=== PATIENT | male | born 1965 | race Caucasian/White ===

== ENCOUNTER 2024-02-25 19:02 | Inpatient (IN) | payer BC ==
[2024-02-25 19:08] LABS: Glucose,Whole Blood 109 mg/dL (70-110)
[2024-02-25] MEDS: ONDANSETRON 4 MG/2 ML VIAL IVP STA (19:23)
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
[2024-02-25] MEDS: MORPHINE SULFATE 4 MG/ML SYRINGE IVP STA (19:25)
[2024-02-25] MEDS: SODIUM CHLORIDE 0.9% 1,000 ML IV STA (19:27)
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
[2024-02-25 20:12] LABS: Basophils # (A) 0.1 k/uL (0-0.2); Basophils % (A) 1 %; Eosinophils # (A) 0.2 k/uL (0-0.7); Eosinophils % (A) 2 %; HGB 16.1 gm/dL (13.0-17.5); Lymphocytes % (A) 34 %; MCHC 33.6 g/dL (31.0-37.0); MCV 95.2 fL (80.0-100.0); Mean Platelet Volume 8.2; Monocytes # (A) 0.3 k/uL (0-1.0); Monocytes % (A) 4 %; Neutrophils % (A) 57 %; Platelet Count 258 k/uL (150-450); RBC 5.04 m/uL (4.30-5.90); RDW 13.3 % (11.5-15.5); WBC 8.8 k/uL (3.8-10.6)
[2024-02-25] MEDS: fentaNYL (PF) 50 MCG/ML 2 ML AMP IVP STA ×2 (20:14→21:35)
[2024-02-25 20:19] LABS: ALT 22 U/L (4-49); AST 39 U/L (17-59); African American GFR (CKD) >90 (>60 ml/min/1.73 sqM); Albumin 4.9 g/dL (3.5-5.0); Alkaline Phosphatase 84 U/L (38-126); Anion Gap 10 mmol/L; Blood Urea Nitrogen 6 mg/dL (9-20); Calcium 9.1 mg/dL (8.4-10.2); Carbon Dioxide 21 mmol/L (22-30); Chloride 106 mmol/L (98-107); Creatine Kinase 99 U/L (55-170); Glucose 105 mg/dL (74-99); Non-African American GFR(CKD) >90 (>60 ml/min/1.73 sqM); Potassium 4.5 mmol/L (3.5-5.1); Sodium 137 mmol/L (137-145); Total Bilirubin 0.8 mg/dL (0.2-1.3); Total Protein 7.5 g/dL (6.3-8.2)
[2024-02-25 20:22] LABS: Alcohol 140 mg/dL
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
[2024-02-25 21:09] LABS: INR 0.9 (<1.2); Prothrombin Time 10.1 sec (10.0-12.5)
[2024-02-25 21:22] LABS: Appearance,Urine Clear (Clear); Bilirubin,Urine Negative (Negative); Blood,Urine Negative (Negative); Color,Urine Colorless; Glucose,Urine (UA) Negative (Negative); Ketones,Urine Negative (Negative); Leukocyte Esterase,Urine Negative (Negative); Nitrite,Urine Negative (Negative); PH, Urine 5.5 (5.0-8.0); Protein,Urine Negative (Negative); Specific Gravity,Urine 1.014 (1.001-1.035); Urobilinogen,Urine <2.0 mg/dL (<2.0)
[2024-02-25] MEDS: MIDAZOLAM 1 MG/ML 5 ML VIAL IV STA (21:36)
[2024-02-25] MEDS: LIDOCAINE 1%-EPI 1:100,000 20 ML VIAL SQ STA (21:37)
[2024-02-25] MEDS: MIDAZOLAM 2 MG/2 ML VIAL IV ONE (21:45)
[2024-02-25 21:47] LABS: Amphetamine Screen,Urine Not Detected (NotDetected); Barbiturate Screen,Urine Not Detected (NotDetected); Benzodiazepines Screen,Urine Not Detected (NotDetected); Cocaine Screen,Urine Not Detected (NotDetected); Methadone Screen, Urine Not Detected (NotDetected); Opiate Screen,Urine Detected (NotDetected); Oxycodone Screen, Urine Not Detected (NotDetected); Phencyclidine Screen,Urine Not Detected (NotDetected); Tricyclic Antidepressant,Urine Not Detected (NotDetected); Urn Cannabinoid Scrn Detected (NotDetected)
[2024-02-25 21:50] LABS: Partial Thromboplastin Time 21.6 sec (22.0-30.0)
[2024-02-25] MEDS: fentaNYL (PF) 50 MCG/ML 2 ML AMP IVP ONE (21:54)
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
[2024-02-25] MEDS ORDERED: NALOXONE 0.4 MG/ML 1 ML VIAL IV PRN (22:18)
[2024-02-25] MEDS ORDERED: CALCIUM CARBONATE 500 MG CHEWABLE PO PRN (22:18)
[2024-02-25] MEDS ORDERED: MAG HYDROX/AL HYDROX/SIMETH 30 ML CUP PO PRN (22:18)
[2024-02-25] MEDS ORDERED: ACETAMINOPHEN TAB 325 MG TAB PO PRN (22:18)
[2024-02-25] MEDS ORDERED: ONDANSETRON 4 MG/2 ML VIAL IVP PRN (22:18)
--- NOTE | 2024-02-25 22:31 | XR ---
EXAMINATION TYPE: XR chest 1V portable DATE OF EXAM: 02/25/2024 COMPARISON: CT earlier today. HISTORY: Chest tube TECHNIQUE: Single frontal view of the chest is obtained. FINDINGS: There is new left-sided chest tube with overlying subcutaneous emphysema. No definitive pn eumothorax after chest tube placement though limitation due to supine technique. Right lung remains c lear. Cardiac silhouette size remains within normal limits. The osseous structures are intact. IMPRESSION: There is new Left-sided chest tube and adjacent subcutaneous emphysema. Supine technique limits evaluation for small pneumothorax.
[2024-02-25] MEDS ORDERED: methocarbamoL 500 MG TAB PO SCH (23:00)
[2024-02-25] MEDS: DIPH,PERTUS(ACELL)TETVAC-LF 0.5 ML VIAL IM ONE (23:26)
[2024-02-25] MEDS: NICOTINE 21MG/24HR PATCH TRANSDERM SCH (23:29)
[2024-02-25] MEDS: LIDOCAINE 4% PATCH TOPICAL ONE (23:37)
[2024-02-26] MEDS: KETOROLAC 15 MG/ML 1 ML VIAL IVP SCH (00:13)
[2024-02-26] MEDS: HYDROmorphone 1 MG/ML 1 ML SYRINGE IVP PRN (00:14)
[2024-02-26] MEDS: HYDROmorphone 0.5 MG/0.5 ML SYRINGE IVP PRN (04:08)
--- NOTE | 2024-02-26 07:44 | XR ---
EXAMINATION TYPE: XR chest 1V DATE OF EXAM: 02/26/2024 COMPARISON: 02/25/2024 INDICATION: Chest tube TECHNIQUE: Single frontal view of the chest is obtained. FINDINGS: The heart size is normal. The pulmonary vasculature is normal. Left-sided chest tube has been placed. Subcutaneous emphysema is diminished over the interval. No pne umothorax is evident. Some mild atelectasis appears to be at the left base. IMPRESSION: 1. Left-sided chest tube in position. No pneumothorax evident. Subcutaneous emphysema on the left is diminished from comparison. 2. Mild atelectasis left lung base.
[2024-02-26] MEDS: FAMOTIDINE 20 MG TAB PO SCH (09:13)
[2024-02-26 09:35] LABS: Basophils # (A) 0.1 k/uL (0-0.2); Basophils % (A) 1 %; Eosinophils # (A) 0.2 k/uL (0-0.7); Eosinophils % (A) 2 %; HCT 41.9 % (39.0-53.0); HGB 14.2 gm/dL (13.0-17.5); Lymphocytes # (A) 1.4 k/uL (1.0-4.8); Lymphocytes % (A) 16 %; MCH 32.4 pg (25.0-35.0); MCHC 33.9 g/dL (31.0-37.0); MCV 95.5 fL (80.0-100.0); Mean Platelet Volume 7.9; Monocytes # (A) 0.5 k/uL (0-1.0); Monocytes % (A) 5 %; Neutrophils # (A) 6.7 k/uL (1.3-7.7); Neutrophils % (A) 75 %; Platelet Count 171 k/uL (150-450); RBC 4.38 m/uL (4.30-5.90); RDW 13.8 % (11.5-15.5); WBC 8.9 k/uL (3.8-10.6)
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
[2024-02-26 09:44] LABS: ALT 16 U/L (4-49); AST 22 U/L (17-59); African American GFR (CKD) >90 (>60 ml/min/1.73 sqM); Albumin 3.5 g/dL (3.5-5.0); Alkaline Phosphatase 81 U/L (38-126); Anion Gap 4 mmol/L; Blood Urea Nitrogen 10 mg/dL (9-20); Calcium 8.1 mg/dL (8.4-10.2); Carbon Dioxide 25 mmol/L (22-30); Chloride 107 mmol/L (98-107); Glucose 101 mg/dL (74-99); Non-African American GFR(CKD) >90 (>60 ml/min/1.73 sqM); Potassium 3.8 mmol/L (3.5-5.1); Sodium 136 mmol/L (137-145); Total Bilirubin 0.6 mg/dL (0.2-1.3); Total Protein 5.6 g/dL (6.3-8.2)
[2024-02-26] MEDS: HYDROcodone/APAP 7.5-325MG 1 EACH TAB PO PRN (11:32)
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
--- NOTE | 2024-02-27 | XR ---
EXAMINATION TYPE: XR chest 1V DATE OF EXAM: 02/26/2024 CLINICAL HISTORY: Chest tube leak. TECHNIQUE: Single AP portable upright view of the chest is obtained. COMPARISON: Chest x-ray from earlier today. FINDINGS: Persistent left-sided chest tube with adjacent subcutaneous emphysema. No left-sided pneum othorax. Left basilar opacity favors atelectasis. Right lung is clear. Cardiac silhouette size remain s within normal limits. Elevated left hemidiaphragm redemonstrated. Osseous structures are intact. IMPRESSION: Overall stable findings, no pneumothorax with left-sided chest tube redemonstrated. Sub cutaneous emphysema and left basilar atelectasis again seen.
--- NOTE | 2024-02-27 07:15 | XR ---
EXAMINATION TYPE: XR chest 1V portable DATE OF EXAM: 02/27/2024 COMPARISON: 02/25/2024 HISTORY: Evaluate for left pneumothorax TECHNIQUE: Single frontal view of the chest is obtained. FINDINGS: There is a left chest tube. There is mild subcutaneous emphysema along the lateral chest w all which has decreased in the interval. There is mild elevation left hemidiaphragm. There is no pneu mothorax or pleural effusion. There is a mild left lower lobe infiltrate mild atelectasis The right lung is clear. Heart and pulmonary vasculature are normal. The osseous structures are intact. IMPRESSION: 1. Left chest tube with no evidence of pneumothorax. 2. Small left lower lobe infiltrate possibly mild atelectasis. Short-term follow-up is recommended. IMPRESSION: No acute process.
[2024-02-27] MEDS: SENNOSIDES 8.6 MG TAB PO SCH (11:49)
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
--- NOTE | 2024-02-27 18:58 | XR ---
EXAMINATION TYPE: XR chest 1V DATE OF EXAM: 02/27/2024 COMPARISON: 02/27/2024 INDICATION: Prior pneumothorax TECHNIQUE: Single frontal view of the chest is obtained. FINDINGS: The heart size is normal. The pulmonary vasculature is normal. Mild atelectasis may be at the left base. No pneumothorax is evident. Left-sided chest tube remains stable in position. Subcutaneous emphysema left lateral chest wall is diminished from comparison. IMPRESSION: 1. No pneumothorax. Left-sided chest tube remains in position.
[2024-02-27] MEDS: polyethylene glycoL 3350 17 GM POWD.PACK PO SCH (21:08)
--- NOTE | 2024-02-28 07:55 | XR ---
EXAMINATION TYPE: XR chest 2V DATE OF EXAM: 02/28/2024 6:21 AM CLINICAL INDICATION: Male, 58 years old with history of resolved pneumothorax; COMPARISON: Chest radiographs from 02/27/2024 TECHNIQUE: XR chest 2V Frontal view of the chest. FINDINGS: Lungs/Pleura: Left thoracotomy tube trace pneumothorax. There is no evidence of pleural effusion, foc al consolidation, or right pneumothorax. Pulmonary vascularity: Unremarkable. Heart/mediastinum: Cardiomediastinal silhouette is unremarkable. Musculoskeletal: No acute osseous pathology. IMPRESSION: Left thoracotomy tube in appropriate position with trace left pneumothorax.
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
[2024-02-28] MEDS: methocarbamoL 500 MG TAB PO PRN (22:12)
--- NOTE | 2024-02-29 07:29 | XR ---
EXAMINATION TYPE: XR chest 2V DATE OF EXAM: 02/29/2024 6:54 AM CLINICAL INDICATION: Male, 58 years old with history of PTX; PH[facility] COMPARISON: Chest radiograph from one day prior. TECHNIQUE: XR chest 2V Frontal view of the chest. FINDINGS: Lungs/Pleura: Trace pneumothorax There is no evidence of pleural effusion, focal consolidation, or ri ght pneumothorax. Pulmonary vascularity: Unremarkable. Heart/mediastinum: Cardiomediastinal silhouette is unremarkable. Musculoskeletal: No acute osseous pathology. Other findings: Mild subcutaneous emphysema along the left lateral chest wall. Lines/Tubes: Left thoracotomy tube is present with trace pneumothorax. IMPRESSION: Leser, tube trace pneumothorax..
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
--- NOTE | 2024-03-01 08:43 | XR ---
EXAMINATION TYPE: XR chest 2V DATE OF EXAM: 03/01/2024 COMPARISON: 02/29/2024 HISTORY: 58-year-old male follow-up pneumothorax TECHNIQUE: PA and lateral views FINDINGS: Heart normal size. Aorta and pulmonary vasculature within normal limits. Enlarging but still small pn eumothorax less than 20% currently measuring 1.6 cm at the apex versus 5 mm, previously. Subcutaneous emphysema persists on the left. Left-sided chest tube remains in place. Right lung and pleural space are clear. Mild patchy opacity at the left base likely atelectasis. IMPRESSION: Left-sided chest tube in place. Increase in size of the still small left-sided pneumothorax measuring 1.6 cm at the apex versus 5 mm, previously. Edges of the pneumothorax are also seen medially and at the periphery of the left base.
[2024-03-01] MEDS ORDERED: RX INFO: IV CONTRAST WAS GIVEN 1 EACH MISC MISCELLANE PRN (12:20)
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
[2024-03-01 13:23] VITALS: BMI 23.3
[2024-03-01] MEDS: MORPHINE SULFATE 4 MG/ML SYRINGE IVP PRN (13:32)
--- NOTE | 2024-03-01 14:10 | CT ---
EXAMINATION TYPE: CT chest w con CT DLP: 335.2 mGycm, Automated exposure control for dose reduction was used. DATE OF EXAM: 03/01/2024 1:24 PM COMPARISON: 02/25/2024 CLINICAL INDICATION: Male, 58 years old with history of PTX; PHH, pneumothorax TECHNIQUE: Multiple axial images were obtained through the chest. Sagittal and coronal reformats were created for review. Contrast used:100 mL of Isovue 300 with IV Contrast (None if empty) Oral contrast used: (None if empty) FINDINGS: LUNGS/ PLEURA: Left thoracotomy tube with tip barely entering the chest only 10 mm. Subcutaneous gas along the left chest wall. Small left pneumothorax trace left pleural effusion. AIRWAY: Patent and unremarkable. HEART: Size within normal limits. MEDIASTINUM: No gross evidence of adenopathy. VASCULATURE: No aortic aneurysm. MUSCULOSKELETAL: No focal consolidation, pneumothorax pleural effusion. Left rib fracture of left rib 3, 4, posteriorly and left rib 3 anteriorly SOFT TISSUES/LYMPH NODES: Unremarkable. LOWER NECK: No significant findings. UPPER ABDOMEN: Scattered colonic diverticula. IMPRESSION: 1. Left thoracotomy tube with tip barely entering the chest only 10 mm subcutaneous emphysema also p resent. Pulmonology consultation for evaluation of chest tube positioning recommended. There remains small left pneumothorax. 2. Trace left pleural effusion. 3. Left rib 3 and 4 fractures with 2 sites of fracture involving left rib.
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
--- NOTE | 2024-03-01 16:23 | XR ---
EXAMINATION TYPE: XR chest 1V portable DATE OF EXAM: 03/01/2024 4:16 PM CLINICAL INDICATION: Male, 58 years old with history of chest tube removed; [facility] COMPARISON: 03/01/2024 TECHNIQUE: XR chest 1V portable Frontal view of the chest. FINDINGS: Lungs/Pleura: Trace left pneumothorax. There is no evidence of pleural effusion, focal consolidation, or right pneumothorax. Pulmonary vascularity: Unremarkable. Heart/mediastinum: Cardiomediastinal silhouette is unremarkable. Musculoskeletal: No acute osseous pathology. IMPRESSION: Thoracotomy tube has been removed. There remains trace left pneumothorax.
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
--- NOTE | 2024-03-01 17:45 | XR ---
EXAMINATION TYPE: XR chest 1V portable DATE OF EXAM: 03/01/2024 COMPARISON: 03/01/2024 INDICATION: Post left-sided chest tube removal TECHNIQUE: Single frontal view of the chest is obtained. FINDINGS: The heart size is normal. The pulmonary vasculature is normal. There is a small left apical pneumothorax. This is unchanged in depth from the comparison of 1544 ho urs same date IMPRESSION: 1. Stable small left pneumothorax. 2. No new acute pulmonary process.
[2024-03-02] MEDS: bisacodyL 10 MG SUPP RECTAL STA (08:36)
[2024-03-02] MEDS: HYDROmorphone 1 MG/ML 1 ML SYRINGE IVP PRN (08:37)
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
--- NOTE | 2024-03-02 13:20 | XR ---
EXAMINATION TYPE: XR chest 1V portable DATE OF EXAM: 03/02/2024 Comparison: 03/01/2024 Clinical History: 58-year-old male left traumatic pneumothorax, follow-up Findings: Heart normal size. Aorta and pulmonary vasculature within normal limits. Redemonstrated small left ap ical pneumothorax currently measuring 1.3 cm versus 1.1 cm, previously. Cutaneous emphysema persists along the left chest wall. Remainder of the lungs and pleural spaces are clear. Impression: Fairly similar small left apical pneumothorax currently 1.3 cm versus 1.1 cm, previously.
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
[2024-03-02] MEDS ORDERED: TEMAZEPAM 15 MG CAP PO PRN (15:36)
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
[2024-03-02] MEDS: HYDROcodone/APAP 5-325MG 1 EACH TAB PO PRN (16:32)
[2024-03-02] MEDS: amLODIPine 5 MG TAB PO SCH (16:33)
[2024-03-03 08:28] VITALS: BP 164/87; PULSE 90; RESP 17; TEMP 97.6
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
== END 2024-03-03 10:22 | disposition home or self-care (01) | DRG 200 ==
LOC: EC 19:02 → 3SCARD 22:24
PROVIDERS: ADMIT Surgery; ATTEND Surgery
PROC: 0HQ0XZZ Repair Scalp Skin, External Approach (ICD-10-PCS; principal; 2024-02-25)
PROC: 0W9B30Z Drainage of Left Pleural Cavity with Drainage Device, Percutaneous Approach (ICD-10-PCS; principal; 2024-02-25)
PROC: 0HQMXZZ Repair Right Foot Skin, External Approach (ICD-10-PCS; principal; 2024-02-25)
DX: S27.0XXA Traumatic pneumothorax, initial encounter (principal); E87.20 Acidosis, unspecified; S22.42XA Multiple fractures of ribs, left side, initial encounter for closed fracture; T79.7XXA Traumatic subcutaneous emphysema, initial encounter; S91.311A Laceration without foreign body, right foot, initial encounter; I10 Essential (primary) hypertension; S01.01XA Laceration without foreign body of scalp, initial encounter; S40.212A Abrasion of left shoulder, initial encounter; S80.212A Abrasion, left knee, initial encounter; S43.102A Unspecified dislocation of left acromioclavicular joint, initial encounter; F17.200 Nicotine dependence, unspecified, uncomplicated; F10.90 Alcohol use, unspecified, uncomplicated; V23.41XA Electric (assisted) bicycle driver injured in collision with car, pick-up truck or van in traffic accident, initial encounter; Y92.410 Unspecified street and highway as the place of occurrence of the external cause; Y93.55 Activity, bike riding; Y99.8 Other external cause status
CPT/HCPCS: 12002; 32551; 36415; 70450; 71045; 71046; 71260; 72125; 72170; 74177; 80053; 80306; 80320; 81003; 82550; 83605; 84484; 85025; 85610; 85730; 86850; 86900; 86901; 90471; 90715; 93005; 94760; 96361; 96374; 96375; 96376; 99291